=== PATIENT | male | born 1985 | race Caucasian/White ===

== ENCOUNTER 2017-12-23 06:25 | Day surgery (SDC) | payer BC, OTHER ==
[~2017-12-23 06:25] MED LIST: Buffered Lidocaine 0.9% SYRIN* 5 ML/SYR SYRINGE INTRADERM ONE; Dexamethasone IV* 4 MG/ML 1 ML (4 MG) IV SLOW PU ONE; Famotidine IV* 10 MG/ML 2 ML (20 mg) IV ONE
[2017-12-23] MEDS ORDERED: Famotidine IV* 10 MG/ML 2 ML (20 mg) ONE (06:30)
[2017-12-23] MEDS ORDERED: Dexamethasone IV* 4 MG/ML 1 ML (4 MG) ONE (06:30)
[2017-12-23] MEDS ORDERED: ceFAZolin 2 GM PREMIX (*) 2 GM/50 ML BAG IVPB ONE (06:34)
[2017-12-23] MEDS ORDERED: Metoclopramide IV* 5 MG/ML 2 ML VIAL ONE (07:09)
[2017-12-23] MEDS ORDERED: Mivacurium Chloride* 20 MG/10 ML VIAL IV ONE (07:13)
[2017-12-23] MEDS ORDERED: Propofol* 10 MG/ML 20 ML BTL IV PUSH ONE (07:13)
[2017-12-23] MEDS ORDERED: Lidocaine 2% PF * 5 ML VIAL ONE (07:13)
[2017-12-23] MEDS ORDERED: fentaNYL* 50 MCG/ML 2 ML VIAL (100 MCG VIAL) ONE (07:15)
[2017-12-23] MEDS ORDERED: Midazolam* 1 MG/ML 2 ML VIAL (2 MG) ONE ×2 (07:15→07:41)
[2017-12-23] MEDS ORDERED: Bupivacaine 0.25% SDV* 30 ML ONE (07:23)
[2017-12-23] MEDS ORDERED: ROPIVACAINE 5 MG/ML 30 ML BTL (0.5%) ONE (07:34)
[2017-12-23] MEDS ORDERED: Atropine 1MG/ML INJ* 1 ML VIAL ONE (08:01)
[2017-12-23] MEDS ORDERED: Ketorolac INJ* 30 MG/ML 1 ML VIAL ONE (08:21)
[2017-12-23] MEDS ORDERED: Phenylephrine INJ* 10 MG/ML 1 ML VIAL (10 MG) ONE (08:29)
[2017-12-23] MEDS ORDERED: Naloxone* 0.4 MG/ML 1 ML VIAL IV PRN (08:56)
[2017-12-23] MEDS ORDERED: PROCHLORPERAZINE INJ 5 MG/ML 2 ML VIAL IV PRN (08:56)
[2017-12-23] MEDS ORDERED: HYDROcodone/ACETAMIN 5-325 MG* 1 TAB PO PRN (08:56)
[2017-12-23] MEDS ORDERED: fentaNYL* 50 MCG/ML 2 ML VIAL (100 MCG VIAL) IV PRN (08:56)
[2017-12-23] MEDS ORDERED: Ondansetron INJ* 2 MG/ML VIAL ONE (09:10)
[2017-12-23] MEDS ORDERED: methylPREDNISolone ACETATE 80* 80 MG/ML 1 ML VIAL ONE (09:11)
[2017-12-23] MEDS ORDERED: oxyCODONE/Acetamin 5/325 MG* TAB ONE (10:27)
[2017-12-23] MEDS: oxyCODONE/Acetamin 5/325 MG* TAB PO PRN ×2 (10:28→10:53)
[2017-12-23 10:55] VITALS: BP 96/37
--- NOTE | 2017-12-24 06:48 | OP ---
CC: PCP * DATE OF OPERATION: 12/23/17 - [facility] DATE OF : 83 SURGEON: Tiarra Mckeon MD. CHANNEL DIRECTOR: NELLY Davenport. An assistant professor nurse education was needed for the entirety of the case to help with positioning, retraction and was utilized throughout all portions of the case. ANESTHESIOLOGIST: Dr. Jaimes. ANESTHESIA: General, interscalene block. PRE-OP DIAGNOSES: Left shoulder acromioclavicular joint arthritis with bicipital tendonitis. POST-OP DIAGNOSES: Acromioclavicular joint arthritis, bicipital tendonitis as well as loose body in the glenohumeral joint. OPERATIVE PROCEDURE: 1. Left shoulder arthroscopy with removal of loose body from glenohumeral joint. 2. Glenohumeral debridement extensive with debridement of the rotator cuff. 3. Subacromial decompression with acromioplasty. 4. Distal clavicle excision. 5. Biceps tenodesis, subpectoral. 6. Subacromial injection with 80 mg of Depo-Medrol. COMPLICATIONS: None. ESTIMATED BLOOD LOSS: Minimal. INDICATIONS: Miguel Emanuel is a 32-year-old gentleman who has had a work- related injury to his shoulder. He has failed conservative management. He had multiple injections, diagnosed with AC joint arthritis with bicipital tendonitis. Risks and benefits of surgery versus nonoperative treatment were discussed at length. Risks include but are not limited to bleeding, infection, damage to nerves, vessels, surrounding structures, wound nonhealing, persistent pain, need for further surgery, scarring, stiffness, incomplete relief of symptoms, risks of anesthesia. He has elected to proceed with surgery. DESCRIPTION OF PROCEDURE: The patient was greeted in the preoperative area by the attending surgeon. Correct extremity was marked and consent was confirmed. Then he was brought back to the operating suite where he underwent interscalene nerve block by the anesthesiologist after which he underwent general anesthesia via endotracheal intubation. He was then placed in the right lateral decubitus position with an axillary roll. All bony prominences were padded. He was secured with a pegboard. His left arm was draped unsterile with 10 pounds of traction. The left shoulder was then prepped and draped in the usual sterile fashion beginning with chlorhexidine soap, scrub, and alcohol wipe and a final prep with ChloraPrep. After appropriate surgical pause, indicating side, site, procedure, and administration of antibiotics, the posterolateral portal was made sharply with an 11 blade. The scope was introduced into the joint and the joint was examined. There was grade 0 change to the glenohumeral joint. There was evidence of anterior labral fraying. There was a loose body of about 7 mm x 5 mm that was in the joint. The anterior interval had evidence of damage. The subscapularis was intact. The biceps had tearing at the actual biceps as well as fraying of superior labral side. There was evidence of irritation to the undersurface of the supraspinatus tendon. The anterior portal was made in an outside-in fashion. A shaver and a grasper were used to remove the loose body that appeared to be soft tissue and not bone. The inferior recess was intact. There was no evidence of Hill Sachs lesion. The infraspinatus is intact. Supraspinatus had some mild partial tearing. This was debrided back using a shaver, but it was a very minimal tearing. Once that debridement was completed, attention was directed to the biceps which had evidence of damage to the hanh. This was then tenotomized. There was abundant synovitic tissue in the interval. Once the tenotomy, removal of loose body and debridement was completed, all fluid and debris was removed from the . The scope was positioned in the subacromial space. The lateral portal was made in an outside-in fashion. Abundant bursitis was present. There was evidence of partial thickness tearing of the bursal side of the cuff at the musculotendinous junction, but no obvious weakness. Once the bursectomy was completed with the shaver, the acromion was skeletonized using electrocautery device. Acromioplasty was done using a 4-0 oval rubia to remove the irregular anterolateral spur. This was taken back to the level of the AC joint, which was then co-planed. There was abundant stenosis that was apparent. Once the debris was removed from this portion of the case, attention was directed to the distal clavicle. The rubia was brought into the anterior portal. Approximately 8 mm of the distal clavicle was removed using arthroscopic visualization, but with an attempt to prevent any damage to the CC ligaments. There was soft tissue that was apparent, but no evidence of bony calcification of the meniscus that was present there. Once the debridement and distal clavicle excision was complete, an 18 gauge needle was placed under direct visualization in the subacromial space. The wounds were copiously irrigated, scope was removed from the joint, attention was directed to the biceps. Bed was airplaned to the side and and anterior aspect of the shoulder was prepped again using ChloraPrep. A 15 blade was used to make an incision in line with the biceps fascia consisting the the inferior two thirds of the pec. Soft tissue was carefully dissected using Metzenbaum scissors. Once the fascia was identified and the pec was identified, the remainder of dissection was done bluntly. The pec was elevated superiorly. The bicipital groove was palpated. A mando in the fascia was made and then the right angle clamp was used to remove the biceps from the groove. There was abundant erythema, synovitis, and there was very adherent tissue, but it was removed and an image was obtained. The groove was then prepared in the usual fashion with electrocautery device, the rasp as well as the osteotome to allow for good bony bleeding bed. The Q-Fix anchor was then drilled unicortically. The Q- Fix was deployed with excellent purchase. The sutures was then passed through the tendon approximately 1 cm proximal to the musculotendinous junction in a Real Boo type configuration. The excess stump was then excised and then the biceps was shuttled back into the groove and tied down. Once this was secured, the wounds were copiously irrigated with sterile saline. The anterior wound was closed in layers with 2- 0 Vicryl and 3-0 Monocryl. The skin was closed with 3-0 nylon. The subacromial space was injected with 80 mg of Depo-Medrol with 3 cc of Marcaine and the anterior wound was injected with 20 cc of 0.25% Marcaine. Sterile dressings were applied. A Cryo/Cuff and UltraSling were applied. He was awoken from anesthesia and transferred to PACU in stable condition. POSTOPERATIVE PLAN: He will be discharged on pain medications and antibiotics. He will start physical therapy next week. DVT prophylaxis was considered, but deferred due to no previous personal or family history. I will see the patient back in 10 to 14 days. [id number]/[facility] #: [id number] HEALTH SYSTEMVirginie
== END 2017-12-23 11:15 | disposition home or self-care (01) ==
LOC: OREAST 06:25
PROVIDERS: ATTEND Orthopaedic Surgery
DX: M19.112 Post-traumatic osteoarthritis, left shoulder (principal); M75.22 Bicipital tendinitis, left shoulder; M24.012 Loose body in left shoulder; G89.18 Other acute postprocedural pain; Z72.0 Tobacco use; K51.90 Ulcerative colitis, unspecified, without complications
CPT/HCPCS: A9270-GY; C1776; J0461; J0690; J1040; J1100; J1885; J2250; J2405; J2704; J2765; J2795; J3010

== ENCOUNTER 2018-08-27 12:52 | Day surgery (SDC) | payer OTHER ==
[~2018-08-27 12:52] MED LIST changes: +Dexamethasone IV* 4 MG/ML 1 ML (4 MG) ONE; -Famotidine IV* 10 MG/ML 2 ML (20 mg) IV ONE; +ceFAZolin 2 GM in NS PREMIX(*) 2 GM/100 ML BAG IVPB ONE
[2018-08-27] MEDS ORDERED: Levalbuterol 0.63MG/3ML NEB* UNIT OF USE INH ONE ×2 (14:47→15:18)
[2018-08-27] MEDS ORDERED: Midazolam* 1 MG/ML 5 ML VIAL (5 MG) ONE (14:55)
[2018-08-27] MEDS ORDERED: Lidocaine 2% PF * 5 ML VIAL ONE (14:55)
[2018-08-27] MEDS ORDERED: Atracurium* 10 MG/ML 10 ML VIAL ONE (14:55)
[2018-08-27] MEDS ORDERED: fentaNYL* 50 MCG/ML 2 ML VIAL (100 MCG VIAL) ONE ×3 (14:55→17:34)
[2018-08-27] MEDS ORDERED: Ondansetron INJ* 2 MG/ML VIAL ONE (14:55)
[2018-08-27] MEDS ORDERED: Propofol* 10 MG/ML 20 ML BTL IV PUSH ONE (14:55)
[2018-08-27] MEDS ORDERED: ROPIVACAINE 5 MG/ML 30 ML BTL (0.5%) ONE (15:24)
[2018-08-27] MEDS ORDERED: Glycopyrrolate IV* 0.2 MG/ML 1 ML VIAL ONE (16:09)
[2018-08-27] MEDS ORDERED: HYDROmorphone INJ1* 1 MG/ML SYRINGE IV PRN (16:47)
[2018-08-27] MEDS ORDERED: Ondansetron INJ* 2 MG/ML VIAL IV PRN (16:47)
[2018-08-27] MEDS ORDERED: fentaNYL* 50 MCG/ML 2 ML VIAL (100 MCG VIAL) IV PRN (16:47)
[2018-08-27] MEDS ORDERED: oxyCODONE/Acetamin 5/325 MG* TAB PO PRN (16:47)
[2018-08-27] MEDS ORDERED: Naloxone* 0.4 MG/ML 1 ML VIAL IV PRN (16:47)
[2018-08-27] MEDS ORDERED: DiMENhydriNATE IV* 50 MG/ML VIAL IV PUSH PRN (16:47)
[2018-08-27] MEDS ORDERED: DiMENhydriNATE IV* 50 MG/ML VIAL ONE (18:57)
[2018-08-27 20:24] VITALS: BP 131/73
--- NOTE | 2018-08-29 00:01 | OP ---
CC: PCP, Dr. Caraballo * DATE OF OPERATION: 08/27/18 - [facility] DATE OF : 83 SURGEON: Tiarra Mckeon MD ASSISTANTS: First NELLY Davenport and then NELLY Thomas. ANESTHESIOLOGIST: Dr. Sotelo. ANESTHESIA: General interscalene block. PRE-OP DIAGNOSES: 1. Left shoulder recurrent acromioclavicular joint impingement. 2. Symptomatic os acromiale. POST-OP DIAGNOSES: 1. Left shoulder recurrent acromioclavicular joint impingement. 2. Symptomatic os acromiale. 3. Partial thickness tearing of the supraspinatus tendon. OPERATIVE PROCEDURE: 1. Left shoulder arthroscopy with revision, decompression, and re-debridement. 2. Rotator cuff repair with REGENETEN patch. 3. Acromion arthroscopic assisted reduction and internal fixation. 4. Open distal clavicle excision. COMPLICATIONS: None. ESTIMATED BLOOD LOSS: Minimal. IMPLANTS USED: One 4-0 cannulated screw and one REGENETEN patch size medium. INDICATIONS: Miguel is a 33-year-old male who had sustained a work-related injury last fall and he has had persistent pain since. Initially he was treated with arthroscopic decompression and debridement, subpectoral biceps tenodesis, and arthroscopic distal clavicle excision. He did well for a while, but then it started to bother him more. It was determined that his pain was coming from some superior remnant of his distal clavicle as well as symptomatic os acromiale. Imaging studies were done that confirmed the os acromiale. He was symptomatic. He had failed injection, physical therapy, antiinflammatories , and elected to proceed with surgical treatment. Risks and benefits were discussed in length and included but are not limited to bleeding; infection; damage to nerves, vessels, surrounding structures; wound nonhealing; persistent pain; need for further surgery; scarring; stiffness, incomplete relief of symptoms and risk of anesthesia as well as risk of nonunion; malunion; persistent hardware pain. DESCRIPTION OF PROCEDURE: The patient was greeted in the preoperative area by the attending surgeon. Correct extremity was marked and consent was confirmed. The patient underwent interscalene nerve block by the anesthesiologist after which he was brought back to operating suite where he was placed in supine position on the operating table and then underwent general anesthesia and endotracheal intubation after which he was placed in the right lateral decubitus position. An axillary roll was placed, he was secured with a peg board. His left shoulder was draped unsterilely with 10 pounds of traction. Left shoulder was then prepped and draped in the usual sterile fashion with chlorhexidine soap, scrub and alcohol wipe and final prep with ChloraPrep. After appropriate surgical pause indicating side, site, and procedure, administration of antibiotics, the posterolateral portal was made sharply with 11 blade. The scope was introduced into the joint and the joint was examined. There were grade 0 to 1 changes of the glenohumeral joint. There was a small loose body that was present. There was evidence of partial thickness tearing of the supraspinatus tendon. There was abundant erythema about the interval. Subscapularis appeared to be intact. There was no evidence of instability. At this point, the tendon was then marked with a PDS suture to identify if there was any damage on the bursal side, for which repair of some sort would have been indicated. Attention was then directed into the subacromial space. The lateral portal was made in an outside-in fashion. Shaver was used to debride back the bursa that was present. 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 This ran both to from being medial to lateral, mostly from anterior to posterior. The electrocautery device was used to skeletonize the nonunion site, after which a shaver was used to debride back the unstable tissue. The rubia was also brought through the anterior portal as well as laterally to try to access the nonunion space. As the 2 pieces of the bone were mobilized, a separate incision made in the center and the defect was then localized with the needle. The grafts as well as bone cutter shaver were then used to debride the bone. The end of the rubia was used to gently decorticate to allow for bony bleeding bed. After this was complete, two percutaneous pins were then placed from the 4-0 cannulated screw set that were then placed across the fracture site. It was a relatively small piece, the acromion and the bone quality was okay, but not robust. Once the pin was placed through arthroscopic visualization appropriately, this was then overdrilled with the drill and then a 4- 0 cannulated screw approximately 36 mm in length was then placed. One screw was found to be appropriate because of the length of the nonunion site under arthroscopic visualization, this was carefully tightened down to narrow the nonunion gap with care to not overstress it as the bone piece was not large, and I was careful to put on stress. This helped to reduce it within 1 to 2 mm gap. There was copious good bony bleeding bed present. At this point, attention directed to the rotator cuff. The cuff tear was then probed and there was partial thickness tearing of the bursal side. This was all fairly small and therefore, decision was made to consider taking down the tendon fully to do a rotator cuff repair with REGENETEN patch. The medium sized patch was then brought to the field. It was then placed under arthroscopic visualization. Through a separate stab incision , the tendon mindy were then placed with excellent purchase and then the bone mindy were then placed with the help of the library circulation assistant. The patch was placed in excellent position. Shoulder was gently taken through range motion and found to be in good position and appropriately attached. Attention was then directed to the open distal clavicle. A #15 blade was used to make an incision along the prominence of the distal clavicle. The soft tissue carefully was dissected to expose the AC joint capsule, which was incised longitudinally. Soft tissues were carefully elevated. The prominent aspect of the clavicle was identified with the soft tissues and capsule protected. The sagittal saw was then used to remove proximally the remaining portion to allow for a full 1 cm resection of the distal clavicle. The bony prominence was also removed as well. The rasp was then used to shave this down. The gap was identified to be at least 1 cm full resection. The wounds were copiously irrigated with sterile saline. The rasp was then used to smooth any edges down. The capsule was then closed with 0- Vicryl in interrupted fashion. The wound was irrigated again and the large incision was closed in layers with 2-0 Vicryl and the remaining portals and incisions were closed with 3-0 nylon in interrupted fashion. Sterile dressings were applied. Cryo/Cuff and UltraSling were applied. He was awoken from anesthesia and transferred to PACU in stable condition. POSTOPERATIVE PLAN: He will be nonweightbearing. He will be discharged on pain medication and antibiotics. DVT prophylaxis was considered but deferred due to no previous personal or family history. I will see the patient back in 10 to 14 days. He will be 6 weeks in the sling. [id number]/[facility] #: [id number] MTDD
== END 2018-08-27 20:37 | disposition home or self-care (01) ==
LOC: OR 12:52
PROVIDERS: ATTEND Orthopaedic Surgery
DX: S46.012A Strain of muscle(s) and tendon(s) of the rotator cuff of left shoulder, initial encounter (principal); M75.42 Impingement syndrome of left shoulder; M75.22 Bicipital tendinitis, left shoulder; X58.XXXA Exposure to other specified factors, initial encounter; Y93.9 Activity, unspecified; Y92.89 Other specified places as the place of occurrence of the external cause; Y99.0 Civilian activity done for income or pay; G89.18 Other acute postprocedural pain; Z72.0 Tobacco use; K51.90 Ulcerative colitis, unspecified, without complications; F90.9 Attention-deficit hyperactivity disorder, unspecified type; F41.9 Anxiety disorder, unspecified
CPT/HCPCS: C1713; J0690; J1100; J1240; J2250; J2405; J2704; J2795; J3010

== ENCOUNTER 2019-08-03 07:11 | Emergency (ER) | payer BC, OTHER ==
[2019-08-03 07:47] VITALS: BP 122/76
--- NOTE | 2019-08-03 08:24 | UC ---
Complaint Male HPI - HPI Summary HPI Summary: 34-year-old male who initially states that he has been unable to void in the past 24 hours. He denies any fever or chills, no recent illness other than his chronic IBS which she states is under control and for which he takes medicine, however also has colitis which she states is not in good control. He has seen several gastroenterologists and is now seeing a new one. He was on Bentyl for several weeks which caused constipation and difficulty urinating. That was discontinued by his physician and he states the urination became better. He denies any nausea vomiting or diarrhea. He states at 3 AM he was extremely bloated and unable to urinate. He states this morning after awakening he was able have a small bowel movement but is unsure whether he urinated or not. He states now he is feeling much better and his abdomen is no longer bloated. Patient states he took 2 [id number] "water pills" giving that may help him urinate. - History of Current Complaint Chief Complaint: UCGeneralIllness Stated Complaint: BLOATED STOMACH,UNABLE TO URINATE Time Seen by Provider: 08/03/19 07:55 Hx Obtained From: Patient Onset/Duration: Sudden Onset - Patient states at 3 AM he had extreme abdominal bloating, abdominal pain, inability to urinate. Timing: Intermittent Severity Initially: Moderate Severity Currently: Mild Pain Intensity: 0 Location: None Aggravating Factor(s): Nothing Alleviating Factor(s): Nothing - Patient is pain-free here, and the bloating has resolved. - Allergies/Home Medications Allergies/Adverse Reactions: Allergies Allergy/AdvReac Type Severity Reaction Status Date / Time NSAIDS (Non-Steroidal AdvReac See Comment Verified 08/03/19 07:33 Anti-Inflamma Home Medications: Home Medications Hyoscyamine Sulfate [Hyoscyamine Sulfate Sr] 0.375 mg PO SEE INSTRUCTIONS [History Confirmed 08/03/19] Psyllium Husk/Aspartame [Metamucil Powder] 2 tbsp PO DAILY 08/03/19 [History Confirmed 08/03/19] predniSONE [Prednisone 5 MG TAB] 5 mg PO DAILY 08/03/19 [History Confirmed 08/03] PMH/Surg Hx/FS Hx/Imm Hx Previously Healthy: Yes GI/ History: Other - Colitis and IBS. - Surgical History Surgical History: Yes Surgery Procedure, Year, and Place: Right ankle fracture - 18 years old-PLATES AND SCREWS. Colonoscopy. 2018-LEFT SHOULDER x2. GYNECOMASTIA-2011 - Family History Known Family History: Positive: Non-Contributory - Social History Alcohol Use: Rare Alcohol Amount: couple of glasses of wine sometimes with dinner Substance Use Type: None Smoking Status (MU): Former Smoker Amount Used/How Often: OCCASIONAL CIGARETTE Have You Smoked in the Last Year: Yes When Did the Patient Quit Smoking/Using Tobacco: 1 year ago Review of Systems All Other Systems Reviewed And Are Negative: Yes Gastrointestinal: Positive: Abdominal Pain - Patient had abdominal pain at 3 AM today with extreme bloating and inability to urinate. Genitourinary: Negative: Vaginal/Penile Burning, Vaginal/Penile Itching, Vaginal /Penile Tenderness Is Patient Immunocompromised?: No Physical Exam Triage Information Reviewed: Yes Appearance: Well-Appearing, No Pain Distress, Well-Nourished Vital Signs: Initial Vital Signs Temp 98.4 F 08/03/19 07:40 Pulse 64 08/03/19 07:40 Resp 16 08/03/19 07:40 BP 122/76 08/03/19 07:40 Pulse Ox 100 08/03/19 07:40 Vital Signs Reviewed: Yes Eyes: Positive: Conjunctiva Clear ENT: Positive: Hearing grossly normal, Pharynx normal, TMs normal, Uvula midline Neck: Positive: Supple, Nontender, No Lymphadenopathy Respiratory: Positive: Lungs clear, Normal breath sounds, No respiratory distress, No accessory muscle use Cardiovascular: Positive: RRR, No Murmur, Pulses Normal, Brisk Capillary Refill Abdomen Description: Positive: Nontender, No Organomegaly, Soft. Negative: CVA Tenderness (R), CVA Tenderness (L), Distended, Guarding, Hernia @, Hepatomegaly , McBurney's Point Tenderness, Peritoneal Signs, Splenomegaly Bowel Sounds: Positive: Present Musculoskeletal: Positive: Strength Intact, ROM Intact Neurological: Positive: Alert, Muscle Tone Normal Psychological Exam: Normal Complaint Male Course/Dx - Course Course Of Treatment: The patient is comfortable here and pain-free. His physical exam was fairly normal. After discussion with Dr. Ferro, is felt the patient should be evaluated in the emergency room for inability to urinate. I feel that he also needs some lab work to check his kidney function. It is possible he could be seen by urologist today and the names of a local urologist as well as a urologist in [place] was given to the patient. I also advised him not to take the water pills anymore. The patient and significant other who was with him were unsure what emergency they refer to go to but stated they would follow up today. Patient is ambulatory and comfortable does not appear ill. - Differential Dx/Diagnosis Provider Diagnosis: Inability to urinate Discharge ED - Sign-Out/Discharge Documenting (check all that apply): Patient Departure All imaging exams completed and their final reports reviewed: No Studies - Discharge Plan Condition: Good Disposition: HOME-RECOMMEND TO ED Referrals: Ruben Caraballo MD [Primary Care Provider] - Bradnyn Brooks MD [Medical Doctor] - Kathie Aviles MD [Medical Doctor] - Additional Instructions: After the evaluation by the nurse practitioner, it is recommended that you go to the emergency room for further evaluation of the inability to urinate where you should receive additional testing that can be completed in the emergency department. It is recommended that you go directly to the emergency department. This evaluation may include blood work or imaging. This testing will be directed and decided by the provider that evaluates you within the emergency department. If pain becomes worse, you feel lightheaded or you develop worsening symptoms or have any other concerns while you are driving to the emergency room, please conductor pullman and call 911. - Billing Disposition and Condition Condition: GOOD Disposition: Home-Recommend to ED
== END 2019-08-03 08:40 | disposition home health service (06) ==
LOC: UCCORT 07:11
DX: R33.9 Retention of urine, unspecified (principal); K58.9 Irritable bowel syndrome, unspecified; Z87.891 Personal history of nicotine dependence
CPT/HCPCS: 99211; G0463